=== PATIENT | female | born 1995 | race Caucasian/White ===

== ENCOUNTER → 2017-01-14 | Outpatient (CLI) | payer OTHER ==
--- NOTE | 2017-01-14 14:25 | CT ---
HISTORY: Hematuria, abdominal pain Study: CT abdomen pelvis without con Comparison: December 12, 2015 Technique: Axial non contrast images with coronal and sagittal reformats. Dose reduction procedures were used with MA/kv adjusted for body size. Findings: The lung bases are clear. The liver, spleen, adrenal glands, and pancreas are within normal limits. No opaque stones are visible within the gallbladder. The kidneys are unobstructed. The right kidney is without stones. There is a 2 millimeter nonobstructing left midpole renal calculus. No ureteral c alculi are identified. No intraperitoneal or retroperitoneal lymphadenopathy of significance is iden tified. The appendix is normal. There are no findings suggestive of diverticulitis or colitis. [place] of the pelvis demonstrated no evidence for pelvic masses, pelvic fluid, or pelvic lymphadenop athy. No bladder abnormality is identified. No lytic or blastic skeletal lesions are identified. IMPRESSION: No evidence for obstructing ureteral calculi. 2 millimeter nonobstructing left midpole renal calculus Normal appendix Reported By:
== END ==
LOC: RAD 10:36
PROVIDERS: ATTEND Internal Medicine
DX: R31.0 Gross hematuria (principal); R10.84 Generalized abdominal pain
CPT/HCPCS: 74176

== ENCOUNTER → 2017-02-25 | Outpatient (CLI) | payer OTHER ==
[~2017-02-25] MED LIST: NS 100 ML IV 100 ML IV ONE
--- NOTE | 2017-02-25 16:05 | CT ---
CT OF THE ABDOMEN AND PELVIS WITH CONTRAST HISTORY: Right lower quadrant pain Comparison: 01/14/2017 Technique: Multiple axial images of the abdomen and pelvis were obtained from the lung bases to the pubic symphy sis follow the administration of IV contrast as well as oral contrast. Dose reduction techniques inc luding Automated Exposure Control (AEC) and adjustment of mA and kV were utlized. Findings: The heart is normal in size. There is no pericardial effusion. Lung bases are clear without focal con solidation, pleural effusion or pneumothorax. Liver and spleen are normal in size, enhancement characteristics and contour. No focal lesions. The p ortal vein is patent. No ductal dilitation. Gallbladder is present. No calcified gallstones or gallbl adder wall thickening. The pancreas is unremarkable. Adrenal glands are normal. Kidneys enhance symme trically without hydronephrosis or nephrolithiasis. No bowel obstruction or inflammation. Normal appendix. No abnormal appearing mesenteric or retroperit crowder lymph nodes. No free fluid or fluid collections. The bladder is normal in appearance. Uterus and ovaries present. There appear to be multiple small le ft ovarian cysts.. No free fluid or abnormal pelvic lymph nodes. No aggressive osseous lesions. IMPRESSION: 1. Negative CT of the abdomen and pelvis. Specifically the appendix is normal. Reported By:
== END ==
LOC: RAD 15:00
PROVIDERS: ATTEND Internal Medicine
DX: R10.84 Generalized abdominal pain (principal); R50.9 Fever, unspecified; R11.2 Nausea with vomiting, unspecified; R10.31 Right lower quadrant pain
CPT/HCPCS: 74177; A4222